=== PATIENT | female | born 2000 | race Caucasian/White ===

== ENCOUNTER 2023-07-06 08:50 | Emergency (ER) | payer MEDICAID ==
[~2023-07-06] VITALS: Ht 165.1 cm; Wt 99.8 kg
[2023-07-06 08:55] VITALS: BP_SYST 112; PULSE 63; RESP 18; TEMP 97.9; O2SAT 98
[2023-07-06] MEDS: fentaNYL CITRATE/PF 100 MCG/2 ML AMP IM ONE (09:23)
[2023-07-06 09:33] LABS: BASOPHILS % (AUTO) 0.2 % (0.0-2.0); EOSINOPHILS % (AUTO) 0.3 % (0.0-4.0); HEMATOCRIT 40.3 % (36-48); HEMOGLOBIN 13.9 g/dL (12.0-16.0); LYMPHOCYTES % (AUTO) 24.7 % (20.5-51.5); MEAN CORPUSCULAR HEMOGLOBIN 29 pg (27-31); MEAN CORPUSCULAR HGB CONC 34 % (32-36); MEAN CORPUSCULAR VOLUME 84 fL (79.0-98.0); MONOCYTES # (AUTO) 0.4 K/uL (0.0-1.0); NEUTROPHILS # (AUTO) 5.5 K/uL (1.8-7.7); NEUTROPHILS % (AUTO) 69.8 % (40.0-70.0); PLATELET COUNT (AUTO) 275 K/uL (130-430); RED BLOOD CELL COUNT(AUTO) 4.78 MIL/uL (4.2-6.2); WHITE BLOOD COUNT (AUTO) 7.9 K/uL (4.8-10.8)
[2023-07-06 09:38] LABS: BILIRUBIN,URINE NEGATIVE (NEGATIVE); BLOOD, URINE NEGATIVE (NEGATIVE); CLARITY/URINE CLEAR (CLEAR); COLOR,URINE YELLOW (YELLOW); GLUCOSE,URINE NEGATIVE (NEGATIVE); KETONES,URINE NEGATIVE (NEGATIVE); LEUKOCYTE ESTERASE ,URINE 1+ (NEGATIVE); NITRITE, URINE NEGATIVE (NEGATIVE); PROTEIN URINE NEGATIVE (NEGATIVE); UROBILINOGEN,URINE 0.2 (0.2-1.0)
[2023-07-06 09:53] LABS: BACTERIA,URINE MODERATE /HPF (None Seen); RBC,URINE 0-3 /HPF (0-3)
[2023-07-06 09:54] LABS: MUCUS,URINE 1+ /LPF (None Seen)
[2023-07-06 10:02] LABS: CALCIUM 9.3 mg/dL (8.4-11.0); CREATININE 0.82 mg/dL (0.55-1.30); POTASSIUM 3.9 mmol/L (3.5-5.1)
[2023-07-06] MEDS ORDERED: cefTRIAXone 1 GM VIAL ONE (12:11)
[2023-07-06] MEDS: MORPHINE 4 MG INJ. 4 MG/ML VIAL IVP ONE (12:30)
[2023-07-06] MEDS: ONDANSETRON HCL 4 MG/2 ML VIAL IVP ONE (12:31)
[2023-07-06] MEDS: cefTRIAXone 1 GM in D5W 50 ML IV ONE (12:31)
[2023-07-06] MEDS ORDERED: IBUP-1969 PO (13:09)
[2023-07-06] MEDS ORDERED: ONDA-8 TL (13:09)
[2023-07-06] MEDS ORDERED: HYDR-3917 PO (13:09)
[2023-07-06 13:24] VITALS: BP_SYST 126; PULSE 65; RESP 18; TEMP 97.9; O2SAT 97
== END 2023-07-06 13:22 | disposition home or self-care (01) ==
LOC: SED 08:50
DX: N39.0 Urinary tract infection, site not specified (principal); N83.202 Unspecified ovarian cyst, left side; R10.32 Left lower quadrant pain; Z79.899 Other long term (current) drug therapy
CPT/HCPCS: 99285; 96365; 76856; 96375; 80048; 81000; 81001; 85025; 87040; 87086; 36415; 96372; 81015; J0696; J2405; J3010; J2270

== ENCOUNTER 2023-10-11 11:08 | Emergency (ER) | payer MEDICAID ==
[~2023-10-11] VITALS: Ht 165.1 cm; Wt 102.1 kg
[~2023-10-11 11:08] MED LIST: HYDR-3917 PO; IBUP-1969 PO; ONDA-8 TL
[2023-10-11 11:28] VITALS: BP_SYST 126; PULSE 84; RESP 15; TEMP 97.9; O2SAT 99
[2023-10-11] MEDS ORDERED: DIPHENOXYLATE HCL/ATROP SULF 2.5 MG TAB ONE (12:00)
[2023-10-11] MEDS: DIPHENOXYLATE HCL/ATROP SULF 2.5 MG TAB PO ONE (12:07)
[2023-10-11] MEDS: KETOROLAC TROMETHAMINE 60 MG/2 ML VIAL IM ONE (12:07)
[2023-10-11] MEDS ORDERED: LOM2.5 PO (13:24)
[2023-10-11 13:44] VITALS: BP_SYST 126; PULSE 84; RESP 15; TEMP 97.9; O2SAT 99
== END 2023-10-11 13:42 | disposition home or self-care (01) ==
LOC: SED 11:08
DX: K52.9 Noninfective gastroenteritis and colitis, unspecified (principal); R11.10 Vomiting, unspecified; Z79.899 Other long term (current) drug therapy; Z79.2 Long term (current) use of antibiotics
CPT/HCPCS: 99283; 96372; J1885